=== PATIENT | female | born 1975 | race Caucasian/White ===

== ENCOUNTER 2022-01-31 12:05 | Emergency (ER) | payer MEDICAID ==
[~2022-01-31] VITALS: Ht 160 cm; Wt 78.5 kg
[2022-01-31] MEDS ORDERED: SWABABLE VALVE TRANSFER SET EA MC ONE (13:00)
[2022-01-31] MEDS ORDERED: IOHEXOL 300MG/ML 100 ML INFUS..BTL ONE (13:00)
[2022-01-31] MEDS ORDERED: IV NORMAL SALINE 1000 ML BAG IV ONE (13:00)
[2022-01-31] MEDS ORDERED: IV NORMAL SALINE 250 ML IV ONE (13:01)
[2022-01-31 13:13] LABS: HEMATOCRIT 29.1 % (31.2-41.9); MEAN CORPUSCULAR HEMOGLOBIN 29.9 uug (24.7-32.8); MEAN CORPUSCULAR VOLUME 87.7 fL (75.5-95.3); PLATELET COUNT (AUTO) 351 K/uL (179-408)
[2022-01-31 13:19] LABS: CREATININE 0.8 mg/dL (0.6-1.3); POTASSIUM 3.9 mmol/L (3.5-5.1)
[2022-01-31 13:25] LABS: BILIRUBIN,DIRECT 0.1 mg/dL (0.0-0.2); BILIRUBIN,TOTAL 0.3 mg/dL (0.2-1.0); TOTAL PROTEIN, SERUM 7.2 g/dL (6.4-8.2)
--- NOTE | 2022-01-31 13:26 | NUR ---
Pt went to [place] for Tummy tuck and fat injections in buttocks on 01/20/22. Several days later, when back in [place], pt's surgical drains came out and she began to accumulate fluid at waistline and suture area began turning red.
--- NOTE | 2022-01-31 15:50 | NUR ---
Pt signed out AMA. Wanted to take a nap at home.
[2022-01-31 16:51] VITALS: BP 119/60
== END 2022-01-31 15:50 | disposition left against medical advice (07) ==
LOC: ER 12:05
DX: T81.49XA Infection following a procedure, other surgical site, initial encounter (principal); Z53.29 Procedure and treatment not carried out because of patient's decision for other reasons; J45.909 Unspecified asthma, uncomplicated; Z90.49 Acquired absence of other specified parts of digestive tract
CPT/HCPCS: 36415; 85025; A4663; J7040; Q9967

== ENCOUNTER 2025-07-11 16:48 | Emergency (ER) | payer MEDICAID ==
[~2025-07-11] VITALS: Ht 165.1 cm; Wt 72.6 kg
[2025-07-11 16:51] VITALS: BP 155/54
[2025-07-11] MEDS ORDERED: IPRATROPIUM BROMIDE 0.5 MG/2.5 ML NEBU ONE (17:08)
[2025-07-11] MEDS ORDERED: ALBUTEROL SULFATE 2.5 MG/3 ML NEBU ONE (17:08)
[2025-07-11 17:10] VITALS: O2SAT 97
[2025-07-11] MEDS ORDERED: KETOROLAC TROMETHAMINE 15 MG INJ ONE (17:57)
[2025-07-11] MEDS: ALBUTEROL SULFATE 2.5 MG/3 ML NEBU NEB ONE (17:59)
[2025-07-11] MEDS: IPRATROPIUM BROMIDE 0.5 MG/2.5 ML NEBU NEB ONE (17:59)
[2025-07-11] MEDS: KETOROLAC TROMETHAMINE 15 MG INJ IM ONE (17:59)
[2025-07-11] MEDS ORDERED: ACETAMINOPHEN 500 MG TABLET ONE (18:03)
[2025-07-11] MEDS: ACETAMINOPHEN 500 MG TABLET PO ONE (18:04)
[2025-07-11] MEDS ORDERED: PRED20TA PO (18:26)
[2025-07-11] MEDS ORDERED: ALBU90AE INH (18:26)
[2025-07-11] MEDS ORDERED: BUDE10.22 INH (18:26)
[2025-07-11] MEDS ORDERED: IBUP600T51 PO (18:26)
[2025-07-11] MEDS ORDERED: ALBU1.257 NEB (18:26)
[2025-07-11 18:39] VITALS: BP 129/65; TEMP 97.8; O2SAT 100
== END 2025-07-11 18:49 | disposition home or self-care (01) ==
LOC: ER 16:55
DX: J45.901 Unspecified asthma with (acute) exacerbation (principal); J06.9 Acute upper respiratory infection, unspecified; Z88.7 Allergy status to serum and vaccine
CPT/HCPCS: 99285; 96372; J1885; J7512; A4606; A4663; A9150; J3590